=== PATIENT | female | born 1975 | race Caucasian/White ===

== ENCOUNTER 2021-12-09 12:33 | Emergency (ER) | payer OTHER ==
[2021-12-09 12:41] VITALS: BP 152/96; PULSE 104; RESP 18; TEMP 97.8
--- NOTE | 2021-12-09 13:04 | XR ---
EXAMINATION TYPE: XR finger RT DATE OF EXAM: 12/09/2021 12:58 PM INDICATION: Patient age:Female; 46 years old; Reason for study: pain fall; PHH. COMPARISON: None TECHNIQUE: Frontal, lateral and oblique views of the right first digit with PA projection of the righ t and were obtained. FINDINGS: Normal alignment of the visualized joints. No acute osseous pathology is identified. No e vidence of soft tissue swelling. IMPRESSION: No acute osseous pathology.
--- NOTE | 2021-12-09 13:42 | ED ---
Upper Extremity HPI - General Chief Complaint: Extremity Injury, Upper Stated Complaint: rt thumb injury Time Seen by Provider: 12/09/21 13:08 Source: patient Mode of arrival: ambulatory Limitations: no limitations - History of Present Illness Initial Comments: Patient is a 46-year-old female presents to the emergency room after tripping and falling bracing herself as she fell with her right hand hyperextending her right thumb since that time she has had an increase in pain and swelling with range of motion impairment due to pain and swelling. She denies any wounds, popping or locking of the joint. She has not previously sprained her fractured a joint before. She has a past medical history significant for Crohn's colitis and ankylosing spondylitis and has to be cautious with anti-inflammatory use. - Related Data Home Medications Medication Instructions Recorded Confirmed Bacillus Coagulans [Digestive 2 tab PO BID 10/24/15 10/24/15 Advantage] Biotin 10,000 mcg PO DAILY 10/24/15 10/24/15 Citalopram Hydrobromide [CeleXA] 20 mg PO DAILY 10/24/15 10/24/15 Collagen Plus C 1 tab PO DAILY 10/24/15 10/24/15 Dextroamphetamine/Amphetamine 40 mg PO DAILY PRN 10/24/15 10/24/15 [Adderall] HYDROcodone/APAP 10-325MG [Eaton 1 - 2 tab PO Q6H PRN 10/24/15 10/24/15 10-325] Ibuprofen [Motrin] 800 mg PO TID PRN 10/24/15 10/24/15 L.acidoph,Paracasei, B.lactis 2 cap PO DAILY 10/24/15 10/24/15 [Probiotic] LORazepam [Ativan] 1 mg PO TID PRN 10/24/15 10/24/15 Sulfamethox-Tmp 800-160Mg [Bactrim 1 tab PO BID 10/24/15 10/24/15 DS 800-160 mg] Previous Rx's Medication Instructions Recorded Ciprofloxacin HCl [Cipro] 500 mg PO Q12HR #20 day 10/24/15 Ondansetron Odt [Zofran ODT] 4 mg PO Q8HR PRN #15 tab 10/24/15 Phenazopyridine [Pyridium] 100 mg PO TID 3 Days day 07/20/16 metroNIDAZOLE [Flagyl] 500 mg PO TID 7 Days tab 10/24/15 Allergies Allergy/AdvReac Type Severity Reaction Status Date / Time No Known Allergies Allergy Verified 12/09/21 12:40 Review of Systems ROS Statement: Those systems with pertinent positive or pertinent negative responses have been documented in the HPI. ROS Other: All systems not noted in ROS Statement are negative. Past Medical History Additional Past Medical History / Comment(s): Crohn's colitis and ankylosing spondylitis History of Any Multi-Drug Resistant Organisms: None Reported Past Surgical History: Appendectomy Additional Past Surgical History / Comment(s): abd exploratory Past Psychological History: No Psychological Hx Reported Smoking Status: Current every day smoker Past Alcohol Use History: Rare Past Drug Use History: None Reported General Exam Limitations: no limitations General appearance: alert, in no apparent distress Head exam: Present: atraumatic, normocephalic, normal inspection Eye exam: Present: normal appearance, PERRL, EOMI. Absent: scleral icterus, conjunctival injection, periorbital swelling ENT exam: Present: normal exam, mucous membranes moist Neck exam: Present: normal inspection Respiratory exam: Absent: respiratory distress, accessory muscle use Right Hand Wrist exam: Present: tenderness, swelling, ecchymosis. Absent: full ROM (Limited by pain and swelling), abrasion, deformity, crepitus, dislocation, erythema, amputation, nail avulsion Vascular: Absent: vascular compromise Back exam: Present: normal inspection Neurological exam: Present: alert, oriented X3, CN II-XII intact Psychiatric exam: Present: normal affect, normal mood Skin exam: Present: warm, dry, intact Course Vital Signs 12/09/21 12:38 Temperature 97.8 F Pulse Rate 104 H Respiratory 18 Rate Blood Pressure 152/96 O2 Sat by Pulse 97 Oximetry Procedures - Orthopedic Splinting/Casting Injury #1 Side: right Upper Extremity Injury Location: hand (thumb) Upper Extremity Immobilizer: thumb spica Medical Decision Making - Medical Decision Making 46-year-old female with a trip and fall causing hyperextension of right thumb when bracing fall. No other trauma to any other joints. Will check x-ray of right hand and thumb. X-ray negative for acute anomalies due to mechanism of action concern for skier's thumb injury. Will place and thumb spica encouraged rest continuation of splint, elevation, ice, anti-inflammatory use as tolerated along with follow-up with orthopedics. Case discussed with Dr. Lucio - Radiology Data Radiology results: report reviewed, image reviewed X-ray right thumb no acute osseous pathophysiology no evidence of soft tissue swelling. Disposition Clinical Impression: Sprain of right thumb Disposition: HOME SELF-CARE Condition: Stable Instructions (If sedation given, give patient instructions): Skier's Thumb (ED) Additional Instructions: Please adhere to conservative management with R.I.C.E; resting affected joint, applying ice every 2-3 hours as needed for up to 20 minutes, keep splint intact with Jeremy wrap and elevating joint. After 48 hours from start of pain/injury may begin to alternate ice with heat do not apply heat for greater than 20 minutes and utilize heat source that has auto shut off or self cooling. May utilize Tylenol or ibuprofen as needed for pain or inflammation. Please follow-up with your primary care provider and contact the orthopedist. Please return to the Emergency Department if symptoms worsen or any other concerns. Is patient prescribed a controlled substance at d/c from ED?: No Referrals: Patrick Smith DO [Primary Care Provider] - 1-2 days Graham Sheehan DO [Doctor of Osteopathic Medicine] - 1-2 days Time of Disposition: 13:41
== END 2021-12-09 14:02 | disposition home or self-care (01) ==
LOC: EC 12:33
DX: S63.601A Unspecified sprain of right thumb, initial encounter (principal); F17.200 Nicotine dependence, unspecified, uncomplicated; W01.0XXA Fall on same level from slipping, tripping and stumbling without subsequent striking against object, initial encounter
CPT/HCPCS: 99283

== ENCOUNTER → 2022-01-21 | Outpatient (CLI) | payer OTHER ==
--- NOTE | 2022-01-22 18:56 | MM ---
Reason for Exam: Screening (asymptomatic). Last mammogram was performed 9 year(s) and 8 month(s) ago. Patient History: Menarche at age 12. Patient has no children. Paternal grandmother had breast cancer, age 60. Maternal grandmother had breast cancer, age 90. Paternal aunt had breast cancer, age 50. Maternal aunt (ondina) had breast cancer, age 56. Maternal cousin (paty) had breast cancer, age 42. Maternal cousin (denis) had breast cancer, age 56. Maternal grandmother had ovarian cancer, age 60. Sister had breast cancer, age 40. Sister tested for BRCA1 outcome was negative. Sister tested for BRCA2 outcome was negative. Last menstrual period: 01/20/2022 Risk Values: Mariam 5 year model risk: 1.6%. NCI Lifetime model risk: 15.9%. Prior Study Comparison: 12/07/2009 Bilateral Diagnostic Mammogram, [facility]. 05/20/2012 Bilateral Screening Mammogram, [facility]. 05/27/2012 Right Diagnostic Mammogram, [facility]. Tissue Density: There are scattered fibroglandular densities. Findings: Analyzed By CAD. Prior exams no longer available. There is fairly symmetric density lateral left CC view anterior to middle depth without correlate on the MLO view. Likely island of glandular tissue. As the patient's prior exams are no longer available, six-month follow-up recommended to reassess. Otherwise, no discrete abnormality is seen. Overall Assessment: Probably benign, BI-RAD 3 Management: Diagnostic Mammogram of the left breast in 6 months. 1. Patient should continue monthly self breast exams. 2. A clinical breast exam by your physician is recommended on an annual basis. 3. This exam should not preclude additional follow-up of suspicious palpable abnormalities. Electronically signed and approved by: Manuel Vidal M.D. Radiologist
--- NOTE | 2022-01-22 18:56 | MM ---
Reason for Exam: Screening (asymptomatic). Last mammogram was performed 9 year(s) and 8 month(s) ago. Patient History: Menarche at age 12. Patient has no children. Paternal grandmother had breast cancer, age 60. Maternal grandmother had breast cancer, age 90. Paternal aunt had breast cancer, age 50. Maternal aunt (ondina) had breast cancer, age 56. Maternal cousin (paty) had breast cancer, age 42. Maternal cousin (denis) had breast cancer, age 56. Maternal grandmother had ovarian cancer, age 60. Sister had breast cancer, age 40. Sister tested for BRCA1 outcome was negative. Sister tested for BRCA2 outcome was negative. Last menstrual period: 01/20/2022 Risk Values: Mariam 5 year model risk: 1.6%. NCI Lifetime model risk: 15.9%. Prior Study Comparison: 12/07/2009 Bilateral Diagnostic Mammogram, [facility]. 05/20/2012 Bilateral Screening Mammogram, [facility]. 05/27/2012 Right Diagnostic Mammogram, [facility]. Tissue Density: There are scattered fibroglandular densities. Findings: Analyzed By CAD. Prior exams no longer available. There is fairly symmetric density lateral left CC view anterior to middle depth without correlate on the MLO view. Likely island of glandular tissue. As the patient's prior exams are no longer available, six-month follow-up recommended to reassess. Otherwise, no discrete abnormality is seen. Overall Assessment: Probably benign, BI-RAD 3 Management: Diagnostic Mammogram of the left breast in 6 months. 1. Patient should continue monthly self breast exams. 2. A clinical breast exam by your physician is recommended on an annual basis. 3. This exam should not preclude additional follow-up of suspicious palpable abnormalities. Electronically signed and approved by: Manuel Vidal M.D. Radiologist
== END | disposition home or self-care (01) ==
LOC: RADMAMWWP 15:16
PROVIDERS: ATTEND Family Medicine
DX: Z12.31 Encounter for screening mammogram for malignant neoplasm of breast (principal); Z80.3 Family history of malignant neoplasm of breast
CPT/HCPCS: 77063; 77067

== ENCOUNTER → 2022-03-08 | Outpatient (CLI) | payer OTHER | END | disposition home or self-care (01) | LOC: RADMRIMAIN 09:55 | PROVIDERS: ATTEND Family Medicine | DX: Z53.9 Procedure and treatment not carried out, unspecified reason (principal) ==

== ENCOUNTER → 2022-07-18 | Outpatient (CLI) | payer OTHER ==
--- NOTE | 2022-07-18 13:31 | MM ---
Reason for Exam: Follow-up at short interval from prior study. Last screening mammogram was performed 6 month(s) ago. Patient History: Menarche at age 12. Patient has no children. Paternal grandmother had breast cancer, age 60. Maternal grandmother had breast cancer, age 90. Paternal aunt had breast cancer, age 50. Maternal aunt (ondina) had breast cancer, age 56. Maternal cousin (paty) had breast cancer, age 42. Maternal cousin (denis) had breast cancer, age 56. Maternal grandmother had ovarian cancer, age 60. Sister had breast cancer, age 40. Sister tested for BRCA1 outcome was negative. Sister tested for BRCA2 outcome was negative. Last menstrual period: 07/07/2022 Risk Values: Mariam 5 year model risk: 1.6%. NCI Lifetime model risk: 15.9%. Prior Study Comparison: 05/20/2012 Bilateral Screening Mammogram, [facility]. 05/27/2012 Right Diagnostic Mammogram, [facility]. 01/21/2022 Bilateral MG 3D screening mammo w/cad, [facility]. Tissue Density: Left: There are scattered fibroglandular densities. Findings: Analyzed By CAD. Stable appearance of left breast lateral asymmetry on CC view. No new suspicious masses, calcifications or distortions. Overall Assessment: Benign, BI-RAD 2 Management: Screening Mammogram of both breasts in 1 year. A clinical breast exam by your physician is recommended on an annual basis and results should be correlated with mammographic findings. This exam should not preclude additional follow-up of suspicious palpable abnormalities. Results were given to the patient verbally at the time of exam. Electronically signed and approved by: Collin Eduardo DO
== END | disposition home or self-care (01) ==
LOC: RADMAMWWP 11:03
PROVIDERS: ATTEND Family Medicine
DX: R92.8 Other abnormal and inconclusive findings on diagnostic imaging of breast (principal); Z80.3 Family history of malignant neoplasm of breast
CPT/HCPCS: 77065; G0279; 77061

== ENCOUNTER → 2023-03-11 | Day surgery (SDC) | payer OTHER ==
[~2023-03-11] MED LIST: GLUCAGON 1 MG/ML VIAL IM STA
[2023-03-11 09:08] VITALS: BP 149/93; PULSE 97; RESP 16; TEMP 98.1
--- NOTE | 2023-03-12 13:17 | MR ---
EXAMINATION TYPE: MR Enterography DATE OF EXAM: 03/11/2023 10:02 AM COMPARISON: CT abdomen 10/21/2022. Ultrasound 10/21/2022. CLINICAL INDICATION: Female 47 years old with a history of K50.90 CROHN'S DISEASE. Crohn's disease. TECHNIQUE: Standard multiplanar, multisequence imaging of the abdomen is performed without and with I V contrast, patient is injected with 1350 mL intravenous Gadavist gadolinium contrast. Oral Volumen a nd Water was given as per enterography protocol. FINDINGS: LOWER CHEST: No significant findings. ABDOMEN Bowel: The small bowel distention is inadequate proximally. No definite evidence to suggest abnormal bowel wall thickening involving a small bowel or large bowel. No evidence of bowel obstruction. No evidence for mucosal hyperenhancement, stricture or fistulous tract formation. There is scattered colonic diverticula. Peritoneum: No evidence of pneumoperitoneum, free fluid, or adenopathy. Liver: Unremarkable. Gallbladder and Bile ducts: Unremarkable. Pancreas: Unremarkable. Spleen: Unremarkable. Adrenal glands: Unremarkable. Kidneys: Unremarkable. Bladder: Unremarkable. Reproductive: Left adnexal mass measuring 7.9 x 6.6 cm which is unclear if it's clinically for left o vary or a pedunculated fibroid. This lesion does appear to have postcontrast enhancement. There is a layering fluid fluid level just anterior to this lesion which indents intrinsic high T1 signal measur ing 2.8 x 1.8 cm. Lymph Nodes: Vasculature: Unremarkable. No aortic aneurysm. Musculoskeletal: The osseous structures appear intact. Abdominal wall: Unremarkable. IMPRESSION: 1. No evidence for active bowel disease. 2. Left heterogenous pelvic mass which could be a exophytic fibroid versus ovarian solid neoplasm. MR I pelvis with IV contrast recommended for complete evaluation of this mass. Suspected adjacent hemorr hagic/proteinaceous cyst. 3. Colonic diverticulosis.
== END ==
LOC: RADMRIMAIN 07:56
PROVIDERS: ATTEND Internal Medicine Gastroenterology
DX: K57.30 Diverticulosis of large intestine without perforation or abscess without bleeding (principal); K50.90 Crohn's disease, unspecified, without complications
CPT/HCPCS: 96372; 72197; 74183; J1610; A9585

== ENCOUNTER → 2023-04-27 | Outpatient (CLI) | payer OTHER ==
--- NOTE | 2023-04-28 16:05 | MM ---
Reason for Exam: Screening (asymptomatic). Last mammogram was performed 1 year(s) and 3 month(s) ago. Patient History: Menarche at age 12. Patient has no children. Paternal grandmother had breast cancer, age 60. Maternal grandmother had breast cancer, age 90. Paternal aunt had breast cancer, age 50. Maternal aunt (ondina) had breast cancer, age 56. Maternal cousin (paty) had breast cancer, age 42. Maternal cousin (denis) had breast cancer, age 56. Maternal grandmother had ovarian cancer, age 60. Sister had breast cancer, age 40. Sister tested for BRCA1 outcome was negative. Sister tested for BRCA2 outcome was negative. Risk Values: Mariam 5 year model risk: 1.7%. NCI Lifetime model risk: 15.7%. Prior Study Comparison: 05/27/2012 Right Diagnostic Mammogram, [facility]. 01/21/2022 Bilateral MG 3D screening mammo w/cad, [facility]. 07/18/2022 Left MG 3D diag mammo w/cad , [facility]. Tissue Density: There are scattered fibroglandular densities. Findings: Analyzed By CAD. There is no suspicious group of microcalcifications or new suspicious mass in either breast. Overall Assessment: Negative, BI-RAD 1 Management: Screening Mammogram of both breasts in 1 year. . Patient should continue monthly self-breast exams. A clinical breast exam by your physician is recommended on an annual basis. This exam should not preclude additional follow-up of suspicious palpable abnormalities. Note on Mariam scores and lifetime risk: 1. A Mariam score greater than 3% is considered moderate risk. If this is the case, consider specialist referral to assess eligibility for a risk reducing agent. 2. If overall lifetime risk for the development of breast cancer is 20% or higher, the patient may qualify for future screening with alternating mammogram and breast MRI. Electronically signed and approved by: Manuel Vidal M.D. Radiologist
== END | disposition home or self-care (01) ==
LOC: RADMAMWWP 11:09
PROVIDERS: ATTEND Family Medicine
DX: Z12.31 Encounter for screening mammogram for malignant neoplasm of breast (principal); Z80.3 Family history of malignant neoplasm of breast
CPT/HCPCS: 77063; 77067

== ENCOUNTER → 2024-10-13 | Outpatient (CLI) | payer OTHER ==
--- NOTE | 2024-10-13 08:57 | MM ---
Reason for Exam: Screening (asymptomatic). Last mammogram was performed 1 year(s) and 6 month(s) ago. Patient History: Menarche at age 12. Patient has no children. Hysterectomy at age 48. Paternal grandmother had breast cancer, age 60. Maternal grandmother had breast cancer, age 90. Paternal aunt had breast cancer, age 50. Maternal aunt (ondina) had breast cancer, age 56. Maternal cousin (paty) had breast cancer, age 42. Maternal cousin (denis) had breast cancer, age 56. Maternal grandmother had ovarian cancer, age 60. Sister had breast cancer, age 40. Sister tested for BRCA1 outcome was negative. Sister tested for BRCA2 outcome was negative. Last menstrual period: Risk Values: Mariam 5 year model risk: 1.8%. NCI Lifetime model risk: 15.2%. Prior Study Comparison: 01/21/2022 Bilateral MG 3D screening mammo w/cad, [facility]. 07/18/2022 Left MG 3D diag mammo w/cad , [facility]. 04/27/2023 Bilateral MG 3D screening mammo w/cad, [facility]. Tissue Density: There are scattered areas of fibroglandular density. Findings: Analyzed By CAD. There is no suspicious group of microcalcifications or new suspicious mass in either breast. Overall Assessment: Negative, BI-RAD 1 Management: Screening Mammogram of both breasts in 1 year. . Patient should continue monthly self-breast exams. A clinical breast exam by your physician is recommended on an annual basis. This exam should not preclude additional follow-up of suspicious palpable abnormalities. Note on Mariam scores and lifetime risk: 1. A Mariam score greater than 3% is considered moderate risk. If this is the case, consider specialist referral to assess eligibility for a risk reducing agent. 2. If overall lifetime risk for the development of breast cancer is 20% or higher, the patient may qualify for future screening with alternating mammogram and breast MRI. [facility], , 10/13/2024 8:55 AM. Electronically signed and approved by: Suraj Merlos M.D.
== END | disposition home or self-care (01) ==
LOC: RADMAMWWP 08:24
PROVIDERS: ATTEND Family Medicine
DX: Z12.31 Encounter for screening mammogram for malignant neoplasm of breast (principal); R92.323 Mammographic fibroglandular density, bilateral breasts; Z80.3 Family history of malignant neoplasm of breast
CPT/HCPCS: 77063; 77067